=== PATIENT | male | born 1990 | race Caucasian/White ===

== ENCOUNTER 2017-04-17 19:29 | Emergency (ER) | payer OTHER ==
[~2017-04-17] VITALS: Ht 188 cm; Wt 89.0 kg
[~2017-04-17 19:29] MED LIST: LITH1TAB3 PO; ZYPR10TA9 PO
[2017-04-17 19:31] VITALS: BP 149/87; PULSE 70; RESP 18; TEMP 97.8; O2SAT 98
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
[2017-04-17 21:07] VITALS: BP 116/52
== END 2017-04-17 21:15 | disposition home or self-care (01) ==
LOC: NEPD 19:29
DX: S01.411A Laceration without foreign body of right cheek and temporomandibular area, initial encounter (principal); F32.9 Major depressive disorder, single episode, unspecified; W22.8XXA Striking against or struck by other objects, initial encounter
CPT/HCPCS: 12011; 70486

== ENCOUNTER 2017-10-14 23:42 | Emergency (ER) | payer OTHER ==
[~2017-10-14] VITALS: Ht 188 cm; Wt 94.0 kg
[2017-10-14 23:42] VITALS: BP 136/75; PULSE 75; RESP 14; TEMP 98; O2SAT 99
[2017-10-15] MEDS ORDERED: ROBA500T PO (00:16)
[2017-10-15] MEDS ORDERED: DICL75TA PO (00:16)
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
[2017-10-15] MEDS ORDERED: NAPROXEN 500 MG TAB PO ONE (00:30)
[2017-10-15] MEDS ORDERED: CYCLOBENZAPRINE HCL 10 MG TAB PO ONE (00:30)
== END 2017-10-15 00:30 | disposition home or self-care (01) ==
LOC: NEPD 23:42
DX: M54.2 Cervicalgia (principal); M54.9 Dorsalgia, unspecified; F32.9 Major depressive disorder, single episode, unspecified; Z79.899 Other long term (current) drug therapy; Z88.8 Allergy status to other drugs, medicaments and biological substances; V43.52XA Car driver injured in collision with other type car in traffic accident, initial encounter
CPT/HCPCS: 99283